=== PATIENT | male | born 1980 | race Two or more races ===

== ENCOUNTER 2019-07-21 07:49 | Outpatient (CLI) | payer BC, OTHER ==
[2019-07-21 13:57] LABS: Hemoglobin 15.5 g/dL (14.0-18.0); Mean Corpuscular HGB CONC 34.3 g/dL (32.0-36.0); Mean Corpuscular Hemoglobin 29.6 pg (27.0-31.0); Mean Corpuscular Volume 86.3 fL (78.0-98.0); Mean Platelet Volume 7.3 fL (7.4-10.4); Platelet Count 253 thou/uL (130-400); RBC Distribution Width 12.6 % (11.5-14.5); Red Blood Cell (RBC) Count 5.25 mill/uL (4.70-6.10)
[2019-07-21 14:00] LABS: Bacteria/HPF None Seen HPF (None Seen); Bilirubin Negative (Negative); Blood, Urine Negative (Negative); Clarity Clear (Clear); Glucose, Urine (Dipstick) Normal (Negative); Leukocyte Negative Leu/uL (Negative); Nitrite Negative (Negative); Protein, Urine (Dipstick) Negative (Neg-Trace); Squamous Epithelial 0-3 HPF (0-3); Urobilinogen Normal mg/dL (Less than 2); WBC/HPF 0-3 HPF (0-3)
[2019-07-21 14:16] LABS: Anion Gap 11 mmol/L (10-20); BUN (Urea Nitrogen) 15 mg/dL (8.9-20.6); Calc. Creatinine Clearance 0 mL/min (70-130); Calcium 9.4 mg/dL (7.8-10.44); Carbon Dioxide 27 mmol/L (22-29); Chloride 105 mmol/L (98-107); Estimated GFR-MDRD 72; Glucose 82 mg/dL (70-105); Potassium 3.4 mmol/L (3.5-5.1); Sodium 140 mmol/L (136-145)
[2019-07-23 10:56] LABS: SARS-CoV-2 MS2 Positive; SARS-CoV-2 N Gene Negative; SARS-CoV-2 S Gene Negative; SARS-CoV-2 orf1ab Negative
== END 2019-07-21 07:50 | disposition home or self-care (01) ==
LOC: LABBT 07:49
PROVIDERS: ATTEND Urology
DX: Z01.812 Encounter for preprocedural laboratory examination (principal); Z11.59 Encounter for screening for other viral diseases; N20.0 Calculus of kidney
CPT/HCPCS: 80048; 81001; 85027; 87086; 87635; U0003

== ENCOUNTER 2019-07-24 06:06 | Day surgery (SDC) | payer BC ==
[2019-07-21 12:29] VITALS: BMI 24.2
[2019-07-24] MEDS ORDERED: Fentanyl 100 MCG/2 ML VIAL ONE (06:27)
[2019-07-24] MEDS ORDERED: Famotidine/PF 20 mg/2ml Vial ONE (06:27)
[2019-07-24] MEDS ORDERED: Midazolam HCl 2 mg/2 ml Vial ONE ×2 (06:27→06:51)
[2019-07-24] MEDS ORDERED: Levofloxacin 500 mg/D5W 100 ml Premix Bag ONE (06:48)
[2019-07-24] MEDS ORDERED: Iopamidol 50 ML FS ONE (06:59)
[2019-07-24] MEDS ORDERED: Phenazopyridine HCl 97.5 MG TABLET ONE (08:40)
[2019-07-24] MEDS ORDERED: Ketorolac Tromethamine 30 MG/ML VIAL ONE (08:40)
[2019-07-24] MEDS ORDERED: Oxybutynin 5 MG TAB ONE (08:40)
[2019-07-24] MEDS ORDERED: HYDROcodone/Acetaminophen 5/325 mg Tablet ONE (09:05)
--- NOTE | 2019-07-24 09:24 | OP ---
DATE OF PROCEDURE: 07/24/2019 PREOPERATIVE DIAGNOSIS: Bilateral renal stones. POSTOPERATIVE DIAGNOSIS: Bilateral renal stones. PROCEDURES PERFORMED: Bilateral ureteroscopy with laser lithotripsy, basket extraction of stone, retrograde pyelogram, 6 x 24 double-J ureteral stent without stent placement. ANESTHESIA: General. COMPLICATIONS: None. ESTIMATED BLOOD LOSS: None. SPECIMENS: Bilateral renal stone fragments. DESCRIPTION OF PROCEDURE: After informed consent, the patient was taken to the operating room, transferred to the table under his own power. Anesthesia was established. A time-out was performed showing the correct patient, site, and procedure. Preoperative antibiotics were administered. He was prepped and draped in the lithotomy position. I began by inserting a 22-Serbian rigid cystoscope through the urethra noting a normal course and caliber at the urethra with a nonobstructing prostate. The bladder was then entered and systematically examined noting no mucosal abnormalities. The left ureteral orifice was cannulated with a wire, which was passed up to the renal pelvis under fluoroscopic guidance. An access sheath was passed over this into the proximal ureter under fluoroscopic guidance and retrograde pyelogram performed through this showing good filling of the renal pelvis. No stones were seen on shipping clerk imaging. The flexible ureteroscope was passed through the access sheath into the renal pelvis, where 3 stones were identified. The largest about 8 or 9 mm in size. The 200 micron laser fiber was used to dust these into only a few clinically significant fragments. The Nitinol basket was used to retrieve these fragments and then the renal pelvis reexamined noting no clinically significant stone fragments remaining. The renal pelvis was then filled with contrast and the scope withdrawn. A wire was passed through the access sheath, which was then removed. A 6 x 24 double-J ureteral stent was positioned with a curl in the kidney and curl in the bladder under fluoroscopic guidance. The cystoscope was then reinserted and wire placed on the right side. Access sheath was placed over the wire into the proximal ureter under fluoroscopic guidance. Retrograde pyelogram performed showing good filling of the renal pelvis without stone seen on shipping clerk imaging. The flexible ureteroscope was then passed into the kidney, noting 2 stones, one 8 mm and one 4 mm in size. These were treated with the 200 micron laser fiber in a similar fashion to the other side. A Nitinol basket was used to retrieve all clinically significant stone fragments. The wire was then replaced and the scope and access sheath withdrawn. A 6 x 24 double-J ureteral stent was passed over the wire and positioned with a curl in the kidney and curl in the bladder on the right side as well. The bladder was then drained and the patient awoken from anesthesia, transferred back to his hospital bed and taken to PACU in stable condition, where he will be discharged home upon recovery. Job ID: [id number]
--- NOTE | 2019-07-24 10:36 | RAD ---
RETROGRADE PYELOGRAM: HISTORY: Stent. FINDINGS: Single AP view of the abdomen spot images presented for interpretation. There are bilateral ureteral stents in place. There is some contrast media within the upper collecting systems of both kidneys. IMPRESSION: Bilateral ureteral stents. POS: [facility]
[2019-07-24] MEDS ORDERED: PROPOFOL 200 MG/20 ML VIAL ONE (15:03)
[2019-07-24] MEDS ORDERED: Lidocaine 1% PF 5 ML VIAL ONE (15:03)
[2019-07-24] MEDS ORDERED: Ondansetron PF 4 MG/2 ML Vial ONE (15:03)
[2019-07-24] MEDS ORDERED: Dexamethasone 20 MG/5 ML VIAL ONE (15:03)
[2019-07-24] MEDS ORDERED: diphenhydrAMINE 50 MG/ML VIAL ONE (15:03)
[2019-07-24] MEDS ORDERED: Metoclopramide HCl 10 MG/2 ML VIAL ONE (15:03)
== END 2019-07-24 09:55 | disposition home or self-care (01) ==
LOC: SDC 06:06
PROVIDERS: ATTEND Urology
PROC: 0TC48ZZ Extirpation of Matter from Left Kidney Pelvis, Via Natural or Artificial Opening Endoscopic (ICD-10-PCS; principal; 2019-07-24)
PROC: 0T788DZ Dilation of Bilateral Ureters with Intraluminal Device, Via Natural or Artificial Opening Endoscopic (ICD-10-PCS; principal; 2019-07-24)
PROC: 0TC38ZZ Extirpation of Matter from Right Kidney Pelvis, Via Natural or Artificial Opening Endoscopic (ICD-10-PCS; principal; 2019-07-24)
DX: N20.0 Calculus of kidney (principal); I10 Essential (primary) hypertension; G47.30 Sleep apnea, unspecified; Z79.899 Other long term (current) drug therapy; Z91.041 Radiographic dye allergy status
CPT/HCPCS: 74420; 82365; 88300; C1769; J1100; J1200; J1885; J1956; J2001; J2250; J2405; J2704; J2765; J3010; Q9967; S0028